=== PATIENT | male | born 1945 | race Caucasian/White ===

== ENCOUNTER 2018-09-05 08:07 | Day surgery (SDC) | payer OTHER ==
[2018-09-05] MEDS ORDERED: Ringers Lactate 1,000 ML IV ONE (08:30)
[2018-09-05] MEDS ORDERED: CEFAZOLIN/SWI 1gm 1 GM/10 ML SYR ONE (08:31)
[2018-09-05 08:39] LABS: Absolute Lymphocytes (CBC) 1.5 K/uL (0.7-4.9); Absolute Monocytes 1.1 K/uL (0.1-1.3); Absolute Neutrophil 4.3 K/uL (1.8-8.0); Basophils % 0.7 % (0-1.3); Eosinophils % 4.8 % (0-4.4); Hematocrit 36.6 % (39.6-49.0); Lymphocytes % 20.8 % (15.3-44.8); MCH 26.6 pg (27.0-35.0); MCV 82.5 fL (80-100); MPV 8.1 fL (7.6-11.3); Monocytes % 15.2 % (3.3-12.3); RBC Red Blood Cell Count 4.44 M/uL (4.33-5.43)
[2018-09-05] MEDS ORDERED: FENTANYL CITR 100 MCG/2 ML ONE (10:10)
[2018-09-05] MEDS ORDERED: MIDAZOLAM HCL 2 MG/2 ML INJ ONE (10:10)
[2018-09-05] MEDS ORDERED: PROPOFOL 200 MG/20 ML VIAL IV ONE (10:10)
[2018-09-05] MEDS ORDERED: LIDOCAINE 2% MPF 5 ML VIAL ONE (10:10)
--- NOTE | 2018-09-05 10:23 | RAD REPORT ---
EXAM DESCRIPTION: Cristian Pleitez (2 Views)09/05/2018 8:44 am CLINICAL HISTORY: Preop for pelvic mass surgery COMPARISON: None FINDINGS: Mild interstitial lung opacities probably are chronic. The lungs appear clear of acute in filtrate. The heart is normal size IMPRESSION: No acute abnormalities displayed
[2018-09-05] MEDS ORDERED: EPHEDRINE SULF 50 MG/10 ML SYR ONE (11:34)
[2018-09-05] MEDS ORDERED: Phenylephrine HCl 10 MG/ML 1 ML VIAL ONE (11:39)
[2018-09-05] MEDS ORDERED: Mastisol Adhesive Liq ONE (11:45)
[2018-09-05] MEDS ORDERED: MEPERIDINE HCL 50 MG/ML AMP ONE (12:21)
[2018-09-05] MEDS ORDERED: DIPHENHYDRAMINE 25 MG TAB/CAP ONE (12:57)
--- NOTE | 2018-09-05 13:55 | EKG ---
Test Date: 2018-09-05 Test Time: 08:26:52 Manager Reimbursement: [facility]GARD MEASUREMENT RESULTS: Intervals: Rate: 82 ND: 182 QRSD: 94 QT: 364 QTc: 425 [place]: P: 42 ND: 182 QRS: -22 T: 44 INTERPRETIVE STATEMENTS: Normal sinus rhythm Possible Left atrial enlargement Cannot rule out Anterior infarct, age undetermined Abnormal ECG Compared to ECG 04/19/2017 15:53:31 Myocardial infarct finding now present Incomplete right bundle-branch block no longer present Electronically Signed On 09-05-18 13:53:16 CDT by Bacilio Muniz
--- NOTE | 2018-09-06 01:06 | OP ---
Date of Procedure: 09/05/2018 Surgeon: Terell Whelan MD Cleaning [employer] Washing Equipment Operator: CHRISTIAN Chacon Preoperative Diagnosis: Left gluteal intramuscular mass most likely a lipoma. Postoperative Diagnosis: Left gluteal intramuscular mass most likely a lipoma. Procedure: Excision left gluteal intramuscular lipoma 20 x 15 cm with layered closure. Estimated Blood Loss: Minimal. Specimen: Left gluteal mass. Findings: Most likely lipoma. Anesthesia: General. Complications: None. Drains: JESÚS #10 flat. Disposition: The patient tolerated the procedure in stable condition and taken to Recovery in good g eneral condition. Operative Note: The patient was brought to the OR and placed in supine position. General anesthesia was begun. The patient placed in the right lateral position, prepped and draped in the usual steril e fashion. Marcaine 0.5% was infiltrated locally and then 15-blade used to make approximately an 11 cm incision approximately 6.5 cm posterior from the greater trochanter and 11.5 cm superior and incis ion extended transversely towards the midline. Subcutaneous tissue divided. The portion of the glut eus baudilio muscle identified and fibers and then sharp and blunt dissection utilized and a large approximately 15 x 20 cm lipoma excised. Bleeding controlled with cautery. Entire specimen s ent to Pathology. Wound irrigated. Bleeding controlled with cautery. Then Sander-Gill drain #10 flat placed, secured with 0 nylon, and then 2-0 chromic used to close the deep tissues, 2-0 chromic a nd 3-0 chromic used to approximate the subcutaneous tissue and close the skin. Sterile dressing appl ied. The patient was awakened and taken to Recovery in good general condition. Discharge Note: The patient will go to Day Surgery and home when stable. Disposition: Home. Condition: Stable. Discharge Instructions: Resume home medications and diet. Activity as tolerated. No heavy lifting. Remove outer dressing in 2 days. Keep wound clean and dry. Sponge bathe. Record JESÚS q.12. Tyleno l No. 3 one tablet p.o. q.4 p.r.n. pain, Keflex 500 mg p.o. q.6. Followup in my office in a week. C all for appointment. SHMUEL/EMMANUEL Voice ID: [id number] Report ID: [id number]
== END 2018-09-05 14:05 | disposition home or self-care (01) ==
LOC: OR 08:07
PROVIDERS: ATTEND Surgery
PROC: 0JB90ZZ Excision of Buttock Subcutaneous Tissue and Fascia, Open Approach (ICD-10-PCS; principal; 2018-09-05 09:30)
DX: D17.9 Benign lipomatous neoplasm, unspecified (principal); I10 Essential (primary) hypertension; J44.9 Chronic obstructive pulmonary disease, unspecified; G47.33 Obstructive sleep apnea (adult) (pediatric); K21.9 Gastro-esophageal reflux disease without esophagitis
CPT/HCPCS: 20999; 36415; 71046; 80048; 85025; 88304; 93005; J0690; J2175; J2250; J2370; J3010; 88305; J2704

== ENCOUNTER 2023-06-02 08:34 | Day surgery (SDC) | payer OTHER ==
[2023-05-31 11:10] LABS: Absolute Lymphocytes (CBC) 1.5 K/uL (0.7-4.9); Lymphocytes % 16.9 % (15.3-44.8); MCV 93.3 fL (80-100); MPV 8.2 fL (7.6-11.3); RBC Red Blood Cell Count 4.39 M/uL (4.33-5.43)
[2023-05-31 11:20] LABS: Potassium 4.4 mEq/L (3.5-5.1)
--- NOTE | 2023-05-31 11:29 | RAD REPORT ---
EXAM DESCRIPTION: RAD - Chest Pa And Lat (2 Views) - 05/31/2023 10:44 am CLINICAL HISTORY: pre op for surgery COMPARISON: Chest Pa And Lat (2 Views) dated 05/01/2019; Chest Pa And Lat (2 Views) dated 09/05/2018 FINDINGS: Lines: None. Lungs: No evidence of edema or pneumonia. Pleural: No significant pleural effusions or pneumothorax. Cardiac: The heart size is within normal limits. Mediastinum: Within normal limits. Bones: No acute fractures. Other: None IMPRESSION: No acute cardiopulmonary disease.
--- NOTE | 2023-05-31 14:52 | EKG ---
Test Date: 2023-05-31 Test Time: 10:22:22 Repair Service Dispatcher: ILSA MEASUREMENT RESULTS: Intervals: Rate: 77 [place]: 194 QRSD: 100 QT: 372 QTc: 420 [place]: P: 69 [place]: 194 QRS: -20 T: 54 INTERPRETIVE STATEMENTS: Normal sinus rhythm Low voltage QRS Borderline ECG Compared to ECG 09/05/2018 08:26:52 Low QRS voltage now present Myocardial infarct finding no longer present Electronically Signed On 05-31-23 14:51:38 CDT by German Sims
[2023-06-02] MEDS ORDERED: CEFAZOLIN SODIUM 1 GM/VIAL ONE (09:04)
[2023-06-02] MEDS ORDERED: Ringers Lactate 1,000 ML IV ONE (09:05)
[2023-06-02] MEDS ORDERED: FENTANYL CITR 100 MCG/2 ML ONE (10:31)
[2023-06-02] MEDS ORDERED: propofoL 200 MG/20 ML VIAL IV ONE (10:31)
[2023-06-02] MEDS ORDERED: MIDAZOLAM HCL 2 MG/2 ML INJ ONE (10:32)
[2023-06-02] MEDS ORDERED: ROCURONIUM 50 MG/5 ML VIAL IV ONE (10:34)
[2023-06-02] MEDS ORDERED: ONDANSETRON 4 MG/2 ML VIAL ONE (10:34)
[2023-06-02] MEDS ORDERED: LIDOCAINE 2% MPF 5 ML VIAL ONE (10:34)
[2023-06-02] MEDS ORDERED: GLYCOPYRROLATE 0.2 MG/ML SYR ONE (10:38)
[2023-06-02] MEDS ORDERED: NEOSTIGMINE 1 MG/ML -10 ML VIAL ONE (10:38)
[2023-06-02] MEDS ORDERED: METHYLENE BLUE 1% 10 ML VIAL ONE (10:38)
[2023-06-02] MEDS ORDERED: SUCCINYLCHOLINE 20 MG/ML (10 ML) IV ONE (10:53)
[2023-06-02] MEDS ORDERED: EPHEDRINE SULF 50 MG/ML VIAL ONE (11:43)
[2023-06-02] MEDS ORDERED: HYDROCODONE/APAP 7.5/325 MG TAB PO PRN (12:12)
--- NOTE | 2023-06-02 12:12 | P.OP ---
Date of Service: 06/02/23 Preop diagnosis: Left buttock mass, posterior neck mass Postop diagnosis: Same Procedure performed: Excision left buttocks mass 12 x 15 cm with layered closure, wide excision posterior neck mass 4 x 3 cm with layered closure Surgeon: Terell Whelan MD Pan Washer: CHRISTIAN Hdz Estimated blood loss: Minimal Specimen: Left buttock mass consistent with lipoma, posterior neck mass consistent with epidermal inclusion cyst with inflammation Findings: As above Anesthesia: General Complications: None Drains: Sander-Gill drain #10 flat in the left buttock wound Fluids and blood products: Nonapplicable Disposition: Recovery room Operative note: Patient brought to the OR and placed in supine position. General anesthesia begun. Patient placed in the prone position. Patient prepped and draped in the usual sterile fashion. Marcaine 0.5% infiltrated locally. 15 blade used to make approximately 12 cm incision over the left buttocks. Subcutaneous tissue divided. Deep and subcutaneous tissue a large lipoma approximately 15 cm in diameter identified. Dissection proceeded all the way down intramuscularly and approximately 4 inches deep. And and then sharp and blunt dissection utilized to free the lipoma from the surrounding tissues. Entire mass excised. Wound irrigated and bleeding controlled with cautery. #10 flat JESÚS drain placed and secured with 3-0 nylon. 2-0 chromic used to close the fascia. 2-0 chromic also used to close the subcutaneous tissue. [place] used to close skin. Sterile dressing applied. Then the posterior neck mass identified and a 4 x 3 cm incision made. Entire cyst in total excised and sent to pathology as specimen through the deep subcutaneous tissue. Wound irrigated and bleeding controlled with cautery. 2-0 chromic used to close the deep tissue. 2-0 chromic also used to close the subcutaneous tissue and reapproximate the skin. Minimal opening left for drainage purposes. Sterile dressing applied. Patient awakened and taken to recovery room in good general condition. CC: Dr. Bobby's office
[2023-06-02 12:52] VITALS: O2SAT 97
[2023-06-02] MEDS ORDERED: HYDROCODONE/APAP 7.5/325 MG TAB ONE (13:25)
[2023-06-02 14:27] VITALS: BP 131/69; TEMP 96.5
== END 2023-06-02 13:55 | disposition home or self-care (01) ==
LOC: OR 08:34
PROVIDERS: ATTEND Surgery
PROC: 0JB90ZZ Excision of Buttock Subcutaneous Tissue and Fascia, Open Approach (ICD-10-PCS; 2023-06-02)
PROC: 0JB50ZZ Excision of Left Neck Subcutaneous Tissue and Fascia, Open Approach (ICD-10-PCS; principal; 2023-06-02 10:00)
DX: L72.0 Epidermal cyst (principal); D17.1 Benign lipomatous neoplasm of skin and subcutaneous tissue of trunk; R22.2 Localized swelling, mass and lump, trunk
CPT/HCPCS: 11406; 12034; 11424; 93005; 85025; 80048; 36415; 88304; 71046; J2704; J2710; J2001; J2250; J3010; J2405; J7120; J0690; 88305

== ENCOUNTER → 2025-07-29 | Day surgery (SDC) | payer OTHER ==
--- NOTE | 2025-07-29 11:31 | RAD REPORT ---
PROCEDURE: ULTRASOUND GUIDED BIOPSY Pre-procedure diagnosis: Left buttocks mass Post-procedure diagnosis: Same as above. CLINICAL INDICATION: LEFT BUTTOCK MASS R22.2 COMPLICATIONS: No immediate complications. IMPRESSION: Percutaneous ultrasound-guided Core needle biopsy of left buttocks mass PROCEDURE DETAILS: Consent: Informed consent for the procedure including risks, benefits and alternatives was obtained a nd time-out was performed prior to the procedure. Preparation: Prepped and draped in sterile fashion. Sedation: None Biopsy: Local anesthesia was administered. Under ultrasound guidance, the 12 gauge vacuum assisted bi opsy needle was advanced to the target and biopsy was performed. The biopsy needle was removed and a sterile dressing was applied. [id number]. Number of specimens: 6 On-site biopsy touch preparation: None. Additional sampling description: None. Preliminary assessment of sample adequacy: Not applicable. Tract embolization: None. Post-biopsy imaging findings: No immediate complications seen. Contrast used: None. Estimated blood loss: Less than 10 mL.
== END ==
LOC: FNA 09:06
PROVIDERS: ATTEND Physician Assistant
PROC: 0JB93ZX Excision of Buttock Subcutaneous Tissue and Fascia, Percutaneous Approach, Diagnostic (ICD-10-PCS; principal; 2025-07-29)
DX: D17.1 Benign lipomatous neoplasm of skin and subcutaneous tissue of trunk (principal)
CPT/HCPCS: 11102; 76942; 88305